=== PATIENT | male | born 2000 | race Caucasian/White ===

== ENCOUNTER 2023-11-05 20:10 | Emergency (ER) | payer OTHER ==
[2023-11-05 20:12] VITALS: BP 136/83; PULSE 99; RESP 18; TEMP 98.3; BMI 29.9
[2023-11-05] MEDS ORDERED: ACETAMINOPHEN 325 MG TABLET (FP) ONE (21:02)
[2023-11-05] MEDS ORDERED: IBUPROFEN 400 MG TABLET (FP) PO ONE (21:03)
[2023-11-05] MEDS: IBUPROFEN 400 MG TABLET (FP) PO ONE (21:04)
[2023-11-05] MEDS: ACETAMINOPHEN 325 MG TABLET (FP) PO ONE (21:04)
== END 2023-11-05 23:03 | disposition home or self-care (01) ==
LOC: JERFT 20:10
DX: S93.402A Sprain of unspecified ligament of left ankle, initial encounter (principal); X50.1XXA Overexertion from prolonged static or awkward postures, initial encounter
CPT/HCPCS: 73610-TC-LT-FY; 73630-TC-LT; 99283-25